=== PATIENT | female | born 1985 | race African-American/Black ===

== ENCOUNTER 2017-02-19 11:23 | Emergency (ER) | payer OTHER ==
[~2017-02-19] VITALS: Ht 167.6 cm; Wt 59.0 kg
[2017-02-19 15:03] LABS: CLARITY URINE CLEAR (CLEAR); COLOR URINE YELLOW (YELLOW); GLUCOSE URINE NEGATIVE (NEGATIVE); KETONES URINE TRACE (NEGATIVE); LEUKOCYTE ESTERASE URINE NEGATIVE (NEGATIVE); NITRITE URINE NEGATIVE (NEGATIVE); OCCULT BLOOD URINE NEGATIVE (NEGATIVE); PROTEIN URINE TRACE (NEGATIVE); SPECIFIC GRAVITY URINE 1.025 (1.005-1.030)
[2017-02-19 15:09] LABS: BASOPHILS % 0.5 % (0.0-2.0); EOSINOPHILS % 0.6 % (0.0-5.0); HEMATOCRIT. 41.2 % (36.0-48.0); LYMPHOCYTES % 41.3 % (20.0-50.0); MEAN CORPUSCULAR HEMOGLOBIN 31.8 pg (28.0-32.0); MEAN CORPUSCULAR VOLUME 93.6 fL (81.0-99.0); MEAN PLATELET VOLUME 9.6 fl (7.4-10.4); MONOCYTES % 5.1 % (2.0-8.0); NEUTROPHILS % 52.5 % (40.0-76.0); PLATELET 129 x1000/uL (130-400)
[2017-02-19 15:16] LABS: CHLORIDE 104 mEq/L (98-107)
[2017-02-19 15:25] LABS: CARBON DIOXIDE 29 mEq/L (21-32)
[2017-02-19 17:17] VITALS: BP 126/71
== END 2017-02-19 17:30 | disposition home or self-care (01) ==
LOC: ER 11:23
DX: R42 Dizziness and giddiness (principal); R03.0 Elevated blood-pressure reading, without diagnosis of hypertension; Z90.49 Acquired absence of other specified parts of digestive tract; Z56.6 Other physical and mental strain related to work; F51.02 Adjustment insomnia; G47.9 Sleep disorder, unspecified
CPT/HCPCS: 36415; 71010; 80053; 81001; 81025; 85025; 93005; 99285

== ENCOUNTER 2017-03-31 22:56 | Emergency (ER) | payer OTHER ==
[~2017-03-31] VITALS: Ht 167.6 cm; Wt 61.0 kg
[2017-03-31 23:07] VITALS: BP 107/55
[2017-03-31] MEDS ORDERED: TETRACAINE 0.5% OPHTH DROPS 4ML BOTHEYE ONE (23:30)
[2017-03-31] MEDS ORDERED: FLUORESCEIN SODIUM 1MG/STRIP BOTHEYE ONE (23:30)
== END 2017-04-01 00:30 | disposition home or self-care (01) ==
LOC: ER 22:56
DX: H57.12 Ocular pain, left eye (principal)
CPT/HCPCS: 99283

== ENCOUNTER 2017-09-22 05:55 | Emergency (ER) | payer OTHER ==
[~2017-09-22] VITALS: Ht 170.2 cm; Wt 55.5 kg
[2017-09-22 07:45] VITALS: BP 104/58
== END 2017-09-22 08:20 | disposition home or self-care (01) ==
LOC: ER 07:34
DX: S92.511A Displaced fracture of proximal phalanx of right lesser toe(s), initial encounter for closed fracture (principal); X58.XXXA Exposure to other specified factors, initial encounter; Y93.02 Activity, running; Y92.89 Other specified places as the place of occurrence of the external cause; Y99.8 Other external cause status
CPT/HCPCS: 73660; 99284; Z7610